=== PATIENT | female | born 1950 | race Asian ===

== ENCOUNTER → 2018-10-03 | Outpatient (CLI) | payer MEDICARE, OTHER | END | disposition home or self-care (01) | LOC: CFH 13:23 | PROVIDERS: ATTEND Internal Medicine | DX: Z12.31 Encounter for screening mammogram for malignant neoplasm of breast (principal); M85.89 Other specified disorders of bone density and structure, multiple sites; N60.02 Solitary cyst of left breast; E04.1 Nontoxic single thyroid nodule; N95.1 Menopausal and female climacteric states | CPT/HCPCS: 76536; 77080; 77067 ==